=== PATIENT | female | born 1960 | race Caucasian/White ===

== ENCOUNTER 2017-03-10 11:50 | Emergency (ER) | payer OTHER ==
[2017-03-10] MEDS ORDERED: Lidocaine 1% 5ml(IM or SUTURE)(PAIN CLINIC) ONE (11:57)
[2017-03-10] MEDS: Lidocaine 1% 5ml(IM or SUTURE)(PAIN CLINIC) IJ ONE (12:00)
[2017-03-10] MEDS: DIPH,PERTUSS(ACELL),TET VAC/PF 0.5 ML DISP.SYRIN IM ONE (12:22)
[2017-03-10] MEDS: BUPIVACAINE HCL/PF 5 MG/ML 10ML VIAL IJ ONE (12:31)
[2017-03-10] MEDS ORDERED: BUPIVACAINE HCL/PF 5 MG/ML 10ML VIAL IV ONE (12:34)
--- NOTE | 2017-03-10 12:53 | ED Physician Documentation ---
General Adult - HISTORIAN Historian: patient - HPI Stated Complaint: laceration Chief Complaint: Laceration/Recheck/Suture Further Comments: yes (57 year old female patient presents with laceration to right thumb from pocket knife. last tetanus unknown.) - ROS CONST: no problems EYES/ENT: none CVS/RESP: none GI/: none MS/SKIN/LYMPH: none - PAST HX Past History: hypertension, other (HLD) Other History: diabetes Type 2 Allergies/Adverse Reactions: Allergies Allergy/AdvReac Type Severity Reaction Status Date / Time No Known Drug Allergies Allergy Verified 03/10/17 11:56 Home Medications: Ambulatory Orders Medication Instructions Recorded Aspirin [Aspir 81] 81 mg PO DAILY u2 02/04/15 Atorvastatin Calcium [Lipitor] 40 mg PO DAILY u2 05/20/15 Losartan Potassium 50 mg PO DAILY u2 05/20/15 Metformin HCl [Glucophage] 850 mg PO DAILY u2 05/20/15 - SOCIAL HX Smoking History: non-smoker - FAMILY HX Family History: No - VITAL SIGNS Vital Signs: Vital Signs Temp Pulse Resp BP Pulse Ox 98.2 F 84 18 128/79 98 03/10/17 13:26 03/10/17 13:26 03/10/17 13:26 03/10/17 13:26 03/10/17 13:26 - REVIEWED ASSESSMENTS Nursing Assessment Reviewed: Yes Vitals Reviewed: Yes Procedures Wound Location: other (right thumb) Wound Length: 4 cm Wound's Depth, Shape: linear, flap Wound Explored: clean Irrigated w/ Saline (ccs): 200 (bleeding moderately) Betadine Prep?: No (chlorhexdine) Anesthesia: 1% Lidocaine (digital block at 1200), Other (Marcaine .5%, digital block 1240) Wound Repaired With: sutures Suture Size/Type: 5:0 Number of Sutures: 6 Layer Closure?: No Sterile Dressing Applied?: Yes Progress: Initial digital block unsuccessful, patient could feel first suture. Second block medially, with marcaine 5% - tolerated well with good affect. Repaired wound with 5.0 x 6; 2 sutures through nail Dressing applied by nursing. Patient tolerated well, edges well approximated. Progress - Progress Progress: Keflex 500mg po qid x 10 days and bactroban ointment bid until healed called into [facility] pharmacy. ED Results Lab/Radiology - Orders Orders: ED Orders Category Date Time Status Bupivacaine HCl/Pf [Marcaine 0.5%] Med 03/10/17 12:30 Discontinued 5 mg IJ NOW ONE Bupivacaine HCl/Pf [Marcaine 0.5%] Med 03/10/17 12:34 Discontinued 50 mg IV .STK-MED ONE Diph,Pertuss(Acell),Tet Vac/Pf [Adacel] Med 03/10/17 11:56 Discontinued 0.5 ml IM .ONCE ONE Lidocaine 1% 5ml(IM or SUTURE) [Xylocaine] Med 03/10/17 11:57 Discontinued 50 mg .ROUTE .STK-MED ONE Lidocaine 1% 5ml(IM or SUTURE) [Xylocaine] Med 03/10/17 11:56 Discontinued 50 mg IJ NOW ONE General Adult Physical Exam - PHYSICAL EXAM GENERAL APPEARANCE: mild distress (anxious) EENT: eye inspection normal, MILES RESPIRATORY: no resp distress, chest non-tender, breath sounds normal CVS: reg rate & rhythm, heart sounds normal, equal pulses, no murmur, no gallop , PMI nml, no JVD, no friction rub, 24 ABDOMEN: soft, normal bowel sounds SKIN: warm/dry, normal color, other (right thumb with 4 cm laceration along medial nail bed with flap distally.) NEURO: oriented X3, motor nml, sensation nml, mood/affect nml Discharge Clincal Impression: Laceration of right thumb Qualifiers: Encounter type: initial encounter Damage to nail status: without damage Foreign body presence: without foreign body Qualified Code(s): S61.011A - Laceration without foreign body of right thumb without damage to nail, initial encounter Referrals: Guillermo Huff MD [Primary Care Provider] - 2 Days Additional Instructions: Keep the wound clean and dry until it has healed. You can wash or shower after 24 hours. Do not soak the wound in water and make sure it is dry afterwards (gently pat the area dry with a clean towel). Do not get into a swimming pool, hot tub, guajardo or river until your stitches are removed. To remove your dressing, gently pull it off. If needed, you can dampen it with water then gently pull it off. Clean the laceration twice a day with hibiclens and rinse with water clean away any scabbed area Apply thin coat of antibiotic ointment after cleaning the wound. Cover with non-adherent bandage if able. If you have pain, take simple pain relief medication such as Tylenol or ibuprofen. If bandages or dressings get wet, they will need to be changed. Call your doctor for any signs of symptom of infection redness, drainage, pain. Have your stitches removed at your doctors office in 7-10 days. Discharged with bactroban ointment apply a thin coat twice a day. Home Medications: Ambulatory Orders Aspirin [Aspir 81] 81 mg PO DAILY u2 02/04/15 Atorvastatin Calcium [Lipitor] 40 mg PO DAILY u2 05/20/15 Losartan Potassium 50 mg PO DAILY u2 05/20/15 Metformin HCl [Glucophage] 850 mg PO DAILY u2 05/20/15 Condition: Stable Disposition: 01 HOME, SELF-CARE Decision to Admit: NO Decision Time: 12:52
[2017-03-10 13:28] VITALS: BP 128/79
== END 2017-03-10 13:01 | disposition home or self-care (01) ==
LOC: ED 11:50
DX: S61.011A Laceration without foreign body of right thumb without damage to nail, initial encounter (principal); X58.XXXA Exposure to other specified factors, initial encounter; Y93.9 Activity, unspecified; Y99.9 Unspecified external cause status
CPT/HCPCS: 90715; J3490; 12002; 90471; 99283